=== PATIENT | female | born 1945 | race Two or more races ===

== ENCOUNTER 2023-12-10 08:01 | Inpatient (IN) | payer MEDICARE, BC ==
[~2023-12-10] VITALS: Ht 162.6 cm; Wt 46.7 kg
[2023-12-10 08:29] LABS: BASOPHILS % 1.2 % (0.0-2.0); HEMATOCRIT. 34.1 % (36.0-48.0); HEMOGLOBIN. 11.3 g/dL (12.0-16.0); LYMPHOCYTES % 11.6 % (20.0-50.0); MEAN CORPUSCULAR HEMOGLOBIN 29.6 pg (28.0-32.0); MEAN CORPUSCULAR HGB CONC 33.3 g/dL (31.0-37.0); MEAN CORPUSCULAR VOLUME 88.8 fL (81.0-99.0); MEAN PLATELET VOLUME 7.4 fl (7.4-10.4); MONOCYTES % 9.8 % (2.0-8.0); NEUTROPHILS % 76.4 % (40.0-76.0); PLATELET 316 x1000/uL (130-400); RED BLOOD CELL COUNT 3.83 mill/uL (4.2-5.4); RED CELL DISTRIBUTION WIDTH 15.5 % (11.6-14.6); WHITE BLOOD COUNT 7.6 x1000/uL (4.5-11.0)
[2023-12-10] MEDS ORDERED: VANCOMYCIN 1G PREMIX 200 ML IV ONE (08:30)
[2023-12-10 08:46] LABS: ALANINE AMINOTRANSFERASE 29 IU/L (10-49); ALBUMIN 3.3 g/dL (3.2-4.8); ASPARTATE AMINOTRANSFERASE 33 IU/L (<34); BILIRUBIN TOTAL 0.6 mg/dL (0.1-1.0); CALCIUM 7.9 mg/dL (8.7-10.4); CARBON DIOXIDE 31 mEq/L (21-32); CHLORIDE 106 mEq/L (98-107); CREATININE 0.5 mg/dL (0.6-1.0); GLUCOSE 106 mg/dL (70-105); POTASSIUM 3.5 mEq/L (3.5-5.1); PROTEIN TOTAL 5.7 g/dL (6.0-8.3); SODIUM 141 mEq/L (136-145); UREA NITROGEN BLOOD 14 mg/dL (9-23)
[2023-12-10] MEDS: PIPERACILLIN/TAZO 3.375G/50ML 50 ML IV ONE (09:02)
[2023-12-10] MEDS: SODIUM CHLORIDE 0.9% 1000ML BAG (SEPSIS BOLUS) IV ONE (09:03)
[2023-12-10 09:07] LABS: PROTHROMBIN TIME 11.4 sec (9.6-11.0)
[2023-12-10 09:17] LABS: TROPONIN I HIGH SENSITIVITY 37 ng/L (3.0-34)
[2023-12-10] MEDS ORDERED: ACETAMINOPHEN 325MG TABLET PO PRN (12:00)
[2023-12-10] MEDS ORDERED: ONDANSETRON HCL 4MG/2ML INJ IV PRN (12:00)
[2023-12-10] MEDS ORDERED: IPRATROPIUM/ALBUTEROL 0.5-3(2.5)MG/3ML NEB HHN PRN (12:00)
[2023-12-10] MEDS ORDERED: GUAIFENESIN 200MG/10ML SUGAR FREE UDC PO PRN (12:00)
[2023-12-10] MEDS ORDERED: DOCUSATE SODIUM 100MG CAPSULE PO PRN (12:00)
[2023-12-10] MEDS ORDERED: MAGNESIUM/ALUMINUM HYDROXIDE/SIMETHICONE 30ML UDC PO PRN (12:00)
[2023-12-10] MEDS ORDERED: CLONIDINE 0.1MG TABLET PO PRN (12:00)
[2023-12-10] MEDS ORDERED: DEXTROSE 50% WATER 50ML SYRINGE IV PRN (12:15)
[2023-12-10 12:48] LABS: IRON 33 ug/dL (50-170); PHOSPHORUS 3.1 mg/dL (2.5-4.9); TOTAL IRON BINDING CAPACITY 342 ug/dl (250-425)
[2023-12-10 12:54] LABS: FERRITIN 49 ng/mL (10-291); FOLIC ACID (FOLATE) SERUM 14.91 ng/mL (>5.38); VITAMIN B12 SERUM 463 pg/mL (211-911)
[2023-12-10 13:57] LABS: CLARITY URINE CLEAR (CLEAR); COLOR URINE YELLOW (YELLOW); GLUCOSE URINE NEGATIVE (NEGATIVE); KETONES URINE TRACE (NEGATIVE); LEUKOCYTE ESTERASE URINE NEGATIVE (NEGATIVE); NITRITE URINE NEGATIVE (NEGATIVE); OCCULT BLOOD URINE NEGATIVE (NEGATIVE); PROTEIN URINE NEGATIVE (NEGATIVE); SPECIFIC GRAVITY URINE 1.011 (1.005-1.030)
[2023-12-10 14:28] LABS: *AMPHETAMINES SCREEN URINE NEGATIVE (NEGATIVE); *BARBITURATES SCREEN URINE NEGATIVE (NEGATIVE); *BENZODIAZEPINES SCREEN URINE NEGATIVE (NEGATIVE); *COCAINE SCREEN URINE NEGATIVE (NEGATIVE); CANNABINOID URINE SCREEN NEGATIVE (NEGATIVE); ECSTASY MDMA SCREEN URINE NEGATIVE (NEGATIVE); METHADONE URINE SCREEN Neg (NEGATIVE); OPIATES URINE SCREEN NEGATIVE (NEGATIVE); PHENCYCLIDINE URINE SCREEN NEGATIVE (NEGATIVE)
[2023-12-10] MEDS: VANCOMYCIN 1G PREMIX 200 ML IV NR (14:42)
[2023-12-10] MEDS: POTASSIUM CHLORIDE 20MEQ TABLET SR PO SCH (14:42)
[2023-12-10] MEDS: BLOOD SUGAR DIAGNOSTIC STRIP TEST SCH (14:43)
[2023-12-10] MEDS: APIXABAN 5 MG TABLET PO SCH (17:32)
[2023-12-10] MEDS: ZOLPIDEM TARTRATE 5MG TABLET PO NR (18:07)
[2023-12-10] MEDS: CEFTRIAXONE 1GM/50ML 50 ML IV SCH (19:27)
[2023-12-10 23:05] VITALS: BP 144/76; PULSE 89; PULSE 99; RESP 18; TEMP 97.7
[2023-12-11] VITALS: BP 156/84; PULSE 60; RESP 18; TEMP 98.4
[2023-12-11] MEDS ORDERED: OMEP20CA14 PO (00:20)
[2023-12-11] MEDS ORDERED: PROP20TA19 PO (00:20)
[2023-12-11] MEDS ORDERED: AMI2 (00:20)
[2023-12-11] MEDS ORDERED: APIX5TAB PO (00:20)
[2023-12-11] MEDS ORDERED: SIMV-43 PO (00:20)
[2023-12-11] MEDS ORDERED: MEMA10TA55 (00:20)
[2023-12-11] MEDS ORDERED: DONE5TAB33 PO (00:20)
[2023-12-11 01:44] LABS: CREATINE KINASE 92 IU/L (34-145)
[2023-12-11 02:13] LABS: TROPONIN I HIGH SENSITIVITY 71 ng/L (3.0-34)
[2023-12-11 04:00] VITALS: BP 110/52; PULSE 79; RESP 18; TEMP 98.2
[2023-12-11 07:18] LABS: BASOPHILS % 0.2 % (0.0-2.0); EOSINOPHILS % 1.6 % (0.0-5.0); HEMATOCRIT. 37.8 % (36.0-48.0); HEMOGLOBIN. 12.6 g/dL (12.0-16.0); LYMPHOCYTES % 7.5 % (20.0-50.0); MEAN CORPUSCULAR HGB CONC 33.4 g/dL (31.0-37.0); MEAN CORPUSCULAR VOLUME 89.7 fL (81.0-99.0); MEAN PLATELET VOLUME 7.2 fl (7.4-10.4); MONOCYTES % 8.5 % (2.0-8.0); NEUTROPHILS % 82.2 % (40.0-76.0); PLATELET 308 x1000/uL (130-400); RED BLOOD CELL COUNT 4.22 mill/uL (4.2-5.4); RED CELL DISTRIBUTION WIDTH 14.9 % (11.6-14.6); WHITE BLOOD COUNT 9.7 x1000/uL (4.5-11.0)
[2023-12-11 08:00] VITALS: BP 123/72; PULSE 88; RESP 18; TEMP 97.5
[2023-12-11 09:00] LABS: ALANINE AMINOTRANSFERASE 28 IU/L (10-49); ALBUMIN 3.5 g/dL (3.2-4.8); ASPARTATE AMINOTRANSFERASE 29 IU/L (<34); BILIRUBIN TOTAL 0.6 mg/dL (0.1-1.0); CALCIUM 8.6 mg/dL (8.7-10.4); CARBON DIOXIDE 26 mEq/L (21-32); CHLORIDE 104 mEq/L (98-107); CHOLESTEROL 163 mg/dL (<200); CREATININE 0.6 mg/dL (0.6-1.0); GLUCOSE 148 mg/dL (70-105); HDL CHOLESTEROL 49 mg/dL (>65); LDL CHOLESTEROL 110 mg/dL (5-100); POTASSIUM 3.6 mEq/L (3.5-5.1); PROTEIN TOTAL 6.5 g/dL (6.0-8.3); SODIUM 138 mEq/L (136-145); T4 FREE 1.85 ng/dL (0.89-1.76); THYROID STIMULATING HORMONE 2.15 uIU/mL (0.55-4.78); TRIGLYCERIDE 89 mg/dL (0-150); UREA NITROGEN BLOOD 9 mg/dL (9-23)
[2023-12-11] MEDS: ASPIRIN 81MG EC TABLET PO SCH (09:18)
[2023-12-11 12:00] VITALS: BP 126/58; PULSE 88; RESP 16; TEMP 97.4
[2023-12-11] MEDS: ZOLPIDEM TARTRATE 5MG TABLET PO NR (12:25)
[2023-12-11] MEDS: DONEPEZIL HCL 5MG TABLET PO SCH (12:30)
[2023-12-11] MEDS: CEFTRIAXONE 1GM/50ML 50 ML IV SCH (13:15)
[2023-12-11 16:00] VITALS: BP 144/77; PULSE 107; RESP 18; TEMP 97.4
[2023-12-11 20:00] VITALS: BP 126/79; PULSE 105; RESP 18; TEMP 97.3
[2023-12-11] MEDS: ZOLPIDEM TARTRATE 5MG TABLET PO PRN (20:47)
[2023-12-11] MEDS: FAMOTIDINE 20MG TABLET PO SCH (20:47)
[2023-12-12] VITALS: BP 122/73; PULSE 94; RESP 18; TEMP 97.9
[2023-12-12 04:00] VITALS: BP 139/67; PULSE 87; RESP 20; TEMP 97.5
[2023-12-12 08:00] VITALS: BP 124/65; PULSE 85; RESP 18; TEMP 98.5
[2023-12-12] MEDS: AMIODARONE HCL 200 MG TABLET PO SCH (09:52)
[2023-12-12 12:00] VITALS: BP 140/79; PULSE 86; RESP 20; TEMP 97.1
[2023-12-12 16:00] VITALS: BP 135/87; PULSE 101; RESP 20; TEMP 97.9
[2023-12-12] MEDS: FERROUS SULFATE 300MG/5ML UDC PO SCH (18:10)
[2023-12-12 20:35] VITALS: BP 140/80; PULSE 111; RESP 19; TEMP 97.1
[2023-12-13] VITALS: BP 144/89; PULSE 87; RESP 16; TEMP 97.3
[2023-12-13 04:00] VITALS: BP 147/97; PULSE 91; RESP 19; TEMP 97.3
[2023-12-13 06:18] LABS: HEMATOCRIT 36.7 % (36.0-48.0); HEMOGLOBIN 12.8 g/dL (12.0-16.0); MEAN CORPUSCULAR HEMOGLOBIN 30.9 pg (28.0-32.0); MEAN CORPUSCULAR HGB CONC 34.9 g/dL (31.0-37.0); MEAN CORPUSCULAR VOLUME 88.7 fL (81.0-99.0); PLATELET 399 x1000/uL (130-400); RED BLOOD CELL COUNT 4.13 mill/uL (4.2-5.4); RED CELL DISTRIBUTION WIDTH 14.8 % (11.6-14.6); WHITE BLOOD COUNT 8.5 x1000/uL (4.5-11.0)
[2023-12-13 06:47] LABS: CHLORIDE 103 mEq/L (98-107); POTASSIUM 3.5 mEq/L (3.5-5.1); SODIUM 139 mEq/L (136-145)
[2023-12-13 06:50] LABS: CARBON DIOXIDE 28 mEq/L (21-32)
[2023-12-13 06:52] LABS: CALCIUM 8.9 mg/dL (8.7-10.4)
[2023-12-13 06:53] LABS: CREATININE 0.5 mg/dL (0.6-1.0); GLUCOSE 116 mg/dL (70-105); UREA NITROGEN BLOOD 11 mg/dL (9-23)
[2023-12-13 08:00] VITALS: BP 131/78; PULSE 83; RESP 18; TEMP 97.7
[2023-12-13 11:02] VITALS: BP 128/72; PULSE 78; TEMP 98; O2SAT 98
== END 2023-12-13 12:18 | disposition home health service (06) | DRG 190 ==
LOC: ER 08:01 → 7WST 09:47 → EDBEDREQ 09:49 → 7WST 12-11 20:09
PROVIDERS: ADMIT Internal Medicine; ATTEND Internal Medicine
DX: I21.4 Non-ST elevation (NSTEMI) myocardial infarction (principal); G93.41 Metabolic encephalopathy; F03.90 Unspecified dementia, unspecified severity, without behavioral disturbance, psychotic disturbance, mood disturbance, and anxiety; I48.0 Paroxysmal atrial fibrillation; D64.9 Anemia, unspecified; I10 Essential (primary) hypertension; E78.00 Pure hypercholesterolemia, unspecified; E87.6 Hypokalemia; R73.9 Hyperglycemia, unspecified; Z20.822 Contact with and (suspected) exposure to COVID-19; Z86.73 Personal history of transient ischemic attack (TIA), and cerebral infarction without residual deficits; Z79.899 Other long term (current) drug therapy; Z79.01 Long term (current) use of anticoagulants; J12.9 Viral pneumonia, unspecified
CPT/HCPCS: 36415; 71045; 80048; 80053; 80061; 80305; 81003; 82550; 82607; 82728; 82746; 82962; 83036; 83540; 83550; 83605; 83735; 83880; 84100; 84145; 84439; 84443; 84484; 85025; 85027; 87426; 87804; 93005; 93306; 93970; 97161; 97166; 97530; 99291; J0696; J2543; J3370; J7030